=== PATIENT | male | born 1975 | race Caucasian/White ===

== ENCOUNTER 2019-05-10 19:56 | Emergency (ER) | payer BC ==
[2019-05-10 20:10] VITALS: PULSE 77; RESP 18
[2019-05-10] MEDS ORDERED: MORPHINE SULFATE 4 MG/ML SYRINGE IM STA (20:24)
[2019-05-10] MEDS ORDERED: KETOROLAC 30 MG/ML 1 ML VIAL IM STA (20:24)
--- NOTE | 2019-05-10 20:28 | ED ---
Fall HPI - General Chief Complaint: Fall Stated Complaint: Fall, back pain Time Seen by Provider: 05/10/19 20:11 Source: patient Mode of arrival: ambulatory - History of Present Illness Initial Comments: 44 year-old male patient presents to the emergency room today for evaluation of left low back pain after a slip and fall accident. Patient states he slipped and fell down approximately 2 steps hitting his back, the stairs. Patient denies hitting his head or losing consciousness. Denies any neck pain. Patient states he is having difficulty going from a sitting to standing position due to the pain. Denies any radiation of the pain down his legs. Denies numbness, tingling, weakness of the lower extremities. Denies any saddle anesthesia or loss of bowel or bladder control. He denies any other injuries. He did take ibuprofen without relief. Patient denies any headache, chest pain, shortness of breath, dizziness, weakness, abdominal pain, nausea, vomiting, or difficulties with bowel movements or urination. - Related Data Previous Rx's Medication Instructions Recorded Cyclobenzaprine [Flexeril] 10 mg PO TID #15 tab 05/10/19 Allergies Allergy/AdvReac Type Severity Reaction Status Date / Time No Known Allergies Allergy Verified 05/10/19 20:10 Review of Systems ROS Statement: Those systems with pertinent positive or pertinent negative responses have been documented in the HPI. ROS Other: All systems not noted in ROS Statement are negative. Past Medical History Past Medical History: No Reported History History of Any Multi-Drug Resistant Organisms: None Reported Additional Past Surgical History / Comment(s): pectus excavatum Past Psychological History: No Psychological Hx Reported Smoking Status: Never smoker Past Alcohol Use History: None Reported Past Drug Use History: None Reported General Exam Limitations: no limitations General appearance: alert, in no apparent distress, other (This is a well- developed, well-nourished adult male patient in no acute distress. Vital signs upon presentation are temperature 98.4F, pulse 77, respirations 18, blood pressure 140/79, pulse ox 97% on room air.) Eye exam: Present: normal appearance, PERRL, EOMI. Absent: scleral icterus, conjunctival injection, periorbital swelling ENT exam: Present: normal exam, normal oropharynx, mucous membranes moist Neck exam: Present: normal inspection, full ROM, other (Nontender, no step-off, no deformity to firm midline palpation of the posterior cervical spine. Full range of motion without pain or limitation.). Absent: tenderness, meningismus, lymphadenopathy Respiratory exam: Present: normal lung sounds bilaterally. Absent: respiratory distress, wheezes, rales, rhonchi, stridor Cardiovascular Exam: Present: regular rate, normal rhythm, normal heart sounds. Absent: systolic murmur, diastolic murmur, rubs, gallop, clicks GI/Abdominal exam: Present: soft, normal bowel sounds. Absent: distended, tenderness, guarding, rebound, rigid Extremities exam: Present: normal inspection, full ROM, normal capillary refill, other (Skin to the lower extremities is pink, warm, dry. Cap refills less than 3 seconds. Pedal and posttibial pulses are 2+ and equal bilaterally.). Absen t: tenderness, pedal edema, joint swelling, calf tenderness Back exam: Present: normal inspection, tenderness (Left low back). Absent: vertebral tenderness Neurological exam: Present: alert, oriented X3, CN II-XII intact Psychiatric exam: Present: normal affect, normal mood Skin exam: Present: warm, dry, intact, normal color. Absent: rash Course Vital Signs 05/10/19 20:07 Temperature 98.4 F Pulse Rate 77 Respiratory 18 Rate Blood Pressure 140/79 O2 Sat by Pulse 97 Oximetry Medical Decision Making - Medical Decision Making 44-year-old male patient presented to the emergency department today for evaluation of left low back pain after soap and fall accident. Physical examination did reveal some left low back tenderness. No ecchymosis. No spinal tenderness. X-ray was obtained and showed no acute abnormalities. Urinalysis showed no abnormalities, no blood. He had no CVA tenderness. He is neurologically intact with no focal deficits. No concerning symptoms for cauda equina. I did discuss findings and results with the patient. We did discuss contusion and low back strain as a cause for his symptoms. We'll treat with anti-inflammatories and muscle relaxers. He is instructed to follow-up with his primary care physician for recheck in 1-2 days. Return parameters discussed in detail. He verbalizes understanding and agrees with this plan. - Lab Data Lab Results 05/10/19 Range/Units 20:44 Urine Color Yellow Urine Appearance Clear (Clear) Urine pH 6.0 (5.0-8.0) Ur Specific [place] 1.030 (1.001-1.035) Urine Protein Trace H (Negative) Urine Glucose (UA) Negative (Negative) Urine Ketones Negative (Negative) Urine Blood Negative (Negative) Urine Nitrite Negative (Negative) Urine Bilirubin Negative (Negative) Urine Urobilinogen 3.0 (<2.0) mg/dL Ur Leukocyte Esterase Negative (Negative) - Radiology Data Radiology results: report reviewed, image reviewed X-ray of the lumbosacral spine was obtained. Report was reviewed in its entirety. Impression by Dr. Kellogg shows mild L4 to 5 spondylosis. No fracture seen. Disposition Clinical Impression: Contusion of lower back, Low back strain Disposition: HOME SELF-CARE Condition: Good Instructions (If sedation given, give patient instructions): Low Back Strain (ED), Contusion in Adults (ED) Additional Instructions: Apply ice 20 minutes on and 20 minutes off for the first 24 hours, then switch to warm moist heat. Take medications as directed for pain control. Take motrin 600mg as needed for pain. Follow up with your primary care physician for recheck in 1-2 days. Return to the emergency department immediately for any new, worsening, or concerning symptoms. Prescriptions: Cyclobenzaprine [Flexeril] 10 mg PO TID #15 tab Is patient prescribed a controlled substance at d/c from ED?: No Referrals: Pa Brothers MD [Primary Care Provider] - 1-2 days Time of Disposition: 21:22
--- NOTE | 2019-05-10 20:46 | XR ---
EXAMINATION TYPE: XR lumbosacral spine min 4V DATE OF EXAM: 05/10/2019 COMPARISON: NONE HISTORY: Back pain TECHNIQUE: 5 views FINDINGS: Lumbar vertebra have normal alignment. Disc spaces are fairly normal. There is slight narro wing at L4-5 disc. Posterior elements are intact. There is no compression fracture. Sacroiliac joints appear intact. IMPRESSION: Mild L4-5 spondylosis. No fracture seen.
[2019-05-10 20:50] LABS: Appearance,Urine Clear (Clear); Bilirubin,Urine Negative (Negative); Blood,Urine Negative (Negative); Color,Urine Yellow; Glucose,Urine (UA) Negative (Negative); Ketones,Urine Negative (Negative); Leukocyte Esterase,Urine Negative (Negative); Nitrite,Urine Negative (Negative); Protein,Urine Trace (Negative)
[2019-05-10] MEDS ORDERED: CYCLOBENZAPRINE 10MG STARTER 3 TAB BTL PO STA (21:20)
[2019-05-10] MEDS ORDERED: ACET/COD 300 MG/30 MG STARTER PACK 6 TAB BTL PO STA (21:20)
[2019-05-10 21:41] VITALS: BP 131/91; TEMP 98.3
== END 2019-05-10 21:42 | disposition home or self-care (01) ==
LOC: EC 19:56
DX: S39.012A Strain of muscle, fascia and tendon of lower back, initial encounter (principal); W00.1XXA Fall from stairs and steps due to ice and snow, initial encounter
CPT/HCPCS: 81003; 72110; 99284; 96372 ×2; J2270; J1885

== ENCOUNTER → 2023-05-24 | Outpatient (CLI) | payer BC ==
--- NOTE | 2023-05-24 16:12 | XR ---
EXAMINATION TYPE: XR KUB DATE OF EXAM: 05/24/2023 HISTORY: Pain Comparison: None.Single KUB is submitted for interpretation. Findings: Right renal calculi: Limited evaluation given overlying bowel content. Right ureteral calculi: None Visualized. Left renal calculi: Elongate calculus overlies the region of the left renal pelvis and measures 9 mm in length and 2.7 mm in width. Left ureteral calculi: None Visualized. Pelvic calcifications: Multiple phleboliths noted. Bowel gas pattern is unremarkable. No free air. No mass effects. IMPRESSION: 1. As above
== END | disposition home or self-care (01) ==
LOC: RADXRMAIN 09:35
PROVIDERS: ATTEND Urology
DX: N20.2 Calculus of kidney with calculus of ureter (principal)
CPT/HCPCS: 74018

== ENCOUNTER → 2023-06-02 | Outpatient (CLI) | payer BC ==
[2023-06-03 02:11] LABS: Basophils # (A) 0.08 X 10*3/uL (0.00-0.10); Basophils % (A) 0.9 %; Eosinophils # (A) 0.46 X 10*3/uL (0.04-0.35); HCT 47.4 % (39.6-50.0); HGB 15.8 g/dL (13.0-17.0); Lymphocytes # (A) 1.61 X 10*3/uL (0.90-5.00); Lymphocytes % (A) 17.5 %; MCH 30.5 pg (27.0-32.0); MCHC 33.3 g/dL (32.0-37.0); MCV 91.5 FL (80.0-97.0); Mean Platelet Volume 11.9 FL (9.5-12.2); Monocytes # (A) 0.89 X 10*3/uL (0.20-1.00); Monocytes % (A) 9.7 %; NRBC Per 100 WBC 0 X 10*3/uL (0.00-0.01); Neutrophils # (A) 6.11 X 10*3/uL (1.80-7.70); Neutrophils % (A) 66.4 %; Platelet Count 242 X 10*3/uL (140-440); RBC 5.18 X 10*6/uL (4.40-5.60); RDW 12.8 % (11.5-14.5)
[2023-06-03 02:13] LABS: Blood Urea Nitrogen 27.3 mg/dL (9.0-27.0); Calcium 9.7 mg/dL (8.7-10.3); Carbon Dioxide 22.8 mmol/L (21.6-31.8); Chloride 102 mmol/L (96-109); Glucose 95 mg/dL (70-110); Potassium 4.5 mmol/L (3.5-5.5); Sodium 138 mmol/L (135-145)
== END | disposition home or self-care (01) ==
LOC: LABPAT 16:16
PROVIDERS: ATTEND Urology
DX: Z01.812 Encounter for preprocedural laboratory examination (principal); N20.1 Calculus of ureter
CPT/HCPCS: 36415; 80048; 85025

== ENCOUNTER 2023-06-09 11:13 | Day surgery (SDC) | payer BC ==
[2023-06-07 16:31] VITALS: BMI 31.1
--- NOTE | 2023-06-08 07:13 | P.GSHP ---
History of Present Illness H&P Date: 06/08/23 Chief Complaint: Left renal colic The patient is a 48-year-old white male who presented with left leg pain and was found to have mild to moderate left hydronephrosis due to a 5 mm midureteral calculus. This was diagnosed on a CT scan performed 04/19/2023. A KUB x-ray on 05/24/2023 failed to demonstrate the calculus. However, he continues to experience bilateral groin pain, and urinalysis shows persistent trace microhematuria. - Constitutional Constitutional: Denies chills, Denies fever - Gastrointestinal Gastrointestinal: Denies nausea, Denies vomiting - Genitourinary (Male) Genitourinary: Reports flank pain, Reports kidney stones, Reports testicular pain, Denies hematuria Past Medical History Past Medical History: GERD/Reflux, Osteoarthritis (OA) Additional Past Medical History / Comment(s): Current kidney stones. History of Any Multi-Drug Resistant Organisms: None Reported Past Surgical History: Orthopedic Surgery Additional Past Surgical History / Comment(s): Pectus excavatum at age 2, surgery on cornea, left rotator cuff surgery. Past Anesthesia/Blood Transfusion Reactions: No Reported Reaction Past Psychological History: No Psychological Hx Reported Smoking Status: Never smoker Past Alcohol Use History: None Reported Past Drug Use History: None Reported - Past Family History Father Family Medical History: Cancer Medications and Allergies Home Medications Medication Instructions Recorded Confirmed Type Acyclovir [Zovirax] 800 mg PO DAILY 06/07/23 06/07/23 History Meloxicam [Mobic] 15 mg PO DAILY 06/07/23 06/07/23 History Allergies Allergy/AdvReac Type Severity Reaction Status Date / Time adhesive Allergy Rash/Hives Verified 06/07/23 16:03 Surgical - Exam - General well developed, well nourished, no distress - Neck no masses, trachea midline - Respiratory normal respiratory effort - Abdomen Abdomen: soft, tender (Mild left lower quadrant tenderness), no guarding, no rigid, no rebound - Genitourinary normal penis with no external lesions bilateral: tender - Psychiatric oriented to time, oriented to person, oriented to place, speech is normal, memory intact Results - Imaging CT scan - abdomen: report reviewed, image reviewed Assessment and Plan (1) Calculus of ureter Status: Acute Code(s): N20.1 - CALCULUS OF URETER SNOMED Code(s): 21807672 Plan: Cystoscopy, bilateral retrograde pyelograms, left ureteroscopy with Holmium laser lithotripsy and possible stone basketing, left ureteral stent insertion. The procedure has been reviewed in detail with the patient. He is been made aware of potential risks, which include anesthesia, bleeding, infection, ureteral injury, and inability to remove the ureteral calculus.
[~2023-06-09 11:13] MED LIST: DEXAMETHASONE SOD PHOSPHATE 4 MG/ML 1 ML VIAL IV ONE; HYDROmorphone 0.5 MG/0.5 ML SYRINGE IVP PRN; LACTATED RINGERS 1,000 ML IV SCH; LIDOCAINE 1% (10MG/ML) FOR IV START INTRADERMA PRN; ONDANSETRON 4 MG/2 ML VIAL IVP ONE; droPERidol 5 MG/2 ML VIAL IVP ONE
--- NOTE | 2023-06-09 13:00 | XR ---
EXAMINATION TYPE: XR KUB DATE OF EXAM: 06/09/2023 12:29 PM CLINICAL INDICATION:Male, 48 years old with history of Left kidney stones; COMPARISON: 05/24/2023 TECHNIQUE: One radiographic view of the abdomen was obtained. FINDINGS: The bowel gas pattern is nonspecific without dilated loops of small or large bowel. There i s no evidence for organomegaly or pneumoperitoneum. The osseous structures are intact. Fecal mater ial and gas are demonstrated throughout the colon and rectum. Density projecting over the left kidne y could represent calculus measuring 4 mm. No other calculi definitively visualized. IMPRESSION: 1. Elongated calculus seen on prior are not definitively visualized. There is another hyperdense les ion measuring 4 mm could represent contrast. Consider CT as a better modality for assessing for renal stone. 2. Nonspecific bowel gas pattern without radiographic evidence for acute process.
[2023-06-09] MEDS ORDERED: PROPOFOL 10 MG/ML 20 ML VIAL IV ONE (13:44)
[2023-06-09] MEDS ORDERED: fentaNYL (PF) 50 MCG/ML 2 ML AMP ONE (13:44)
[2023-06-09] MEDS ORDERED: LIDOCAINE 1% INJ 10MG/ML (20 ML MDV) ONE (13:44)
[2023-06-09] MEDS ORDERED: KETOROLAC 30 MG/ML 1 ML VIAL ONE (13:44)
[2023-06-09] MEDS ORDERED: MIDAZOLAM 2 MG/2 ML VIAL ONE (13:44)
[2023-06-09] MEDS ORDERED: IOPAMIDOL-370 100ML BTL MISCELLANE ONE (14:17)
[2023-06-09] MEDS ORDERED: LACTATED RINGERS 1,000 ML IV ONE (14:23)
--- NOTE | 2023-06-09 14:27 | P.OP ---
Date of Procedure: 06/09/23 Preoperative Diagnosis: Left ureteral calculus Postoperative Diagnosis: Same Procedure(s) Performed: Cystoscopy, bilateral retrograde pyelograms Anesthesia: ОЛЬГАA Surgeon: Christian Marion Estimated Blood Loss (ml): 0 IV fluids (ml): 700 Pathology: none sent Condition: stable Disposition: PACU Indications for Procedure: The patient is a 48-year-old white male who presented with left leg pain and was found to have mild to moderate left hydronephrosis due to a 5 mm mid-ureteral calculus. This was diagnosed on a CT scan performed 04/19/2023. A KUB x-ray on 05/24/2023 failed to demonstrate the calculus. However, he continues to experience bilateral groin pain, and urinalysis shows persistent trace microhematuria. Operative Findings: Normal retrograde pyelograms. No calculus seen. Description of Procedure: The patient was taken to the operating room and placed in the dorsolithotomy position, with legs supported in Nicola stirrups. The external genitalia was prepped and draped sterilely. The urethral meatus would not accommodate the cystoscope. Therefore, the urethra was dilated to 24-Israeli using Barrow sounds. The 30 lens was used to introduce the 21-Israeli Nickerson cystoscopic sheath through the urethra and into the bladder under direct vision. The anterior urethra appeared normal. The prostatic urethra showed evidence of mild lateral lobe enlargement, without obstruction. The bladder was examined in its entirety. Both ureteral orifices were normal anatomic location and configuration, and clear urine effluxed from both. No tumors or foreign bodies were seen. Using a 10-Israeli cone-tipped catheter, bilateral retrograde pyelograms were performed. The caliber of the distal ureter was diminished bilaterally. No filling defects were seen, and there was no evidence of hydronephrosis. Both systems drained promptly. The retrograde pyelogram was repeated on the left side to confirm that a calculus was not seen within the ureter. The bladder was emptied and the cystoscope removed. The patient tolerated the procedure well and was taken to the recovery room in stable condition.
[2023-06-09 14:45] VITALS: TEMP 97.2
[2023-06-09 15:35] VITALS: BP 138/91; PULSE 70; RESP 16
--- NOTE | 2023-06-10 07:33 | FL ---
Intraoperative/procedural fluoroscopic services were provided. Total fluoroscopy time is 24 seconds w ith a total of 8 submitted images to PACS. Please see the operative/procedural note for further detai ls. DAP: 1091 Gycm2
== END 2023-06-09 15:39 | disposition home or self-care (01) ==
LOC: OR 11:13
PROVIDERS: ATTEND Urology
DX: N20.1 Calculus of ureter (principal); K21.9 Gastro-esophageal reflux disease without esophagitis; M19.90 Unspecified osteoarthritis, unspecified site; Z79.1 Long term (current) use of non-steroidal anti-inflammatories (NSAID); Z87.442 Personal history of urinary calculi
CPT/HCPCS: 74420; 74018; 52281; C1758; C1769; C1894; J2250; J1100; J0690; J2405; J2001; J3010; J1885; J2704; Q9967

== ENCOUNTER → 2023-12-02 | Outpatient (CLI) | payer BC ==
[2023-12-03 04:01] LABS: Basophils # (A) 0.06 X 10*3/uL (0.00-0.10); Basophils % (A) 0.9 %; Eosinophils # (A) 0.21 X 10*3/uL (0.04-0.35); Eosinophils % (A) 3.2 %; HCT 46.6 % (39.6-50.0); HGB 15.1 g/dL (13.0-17.0); Lymphocytes # (A) 1.46 X 10*3/uL (0.90-5.00); Lymphocytes % (A) 22.1 %; MCH 29.4 pg (27.0-32.0); MCHC 32.4 g/dL (32.0-37.0); MCV 90.7 FL (80.0-97.0); Mean Platelet Volume 11.6 FL (9.5-12.2); Monocytes # (A) 0.83 X 10*3/uL (0.20-1.00); Monocytes % (A) 12.6 %; NRBC Per 100 WBC 0 X 10*3/uL (0.00-0.01); Neutrophils # (A) 4.03 X 10*3/uL (1.80-7.70); Neutrophils % (A) 60.9 %; Platelet Count 192 X 10*3/uL (140-440); RBC 5.14 X 10*6/uL (4.40-5.60); RDW 12.6 % (11.5-14.5); WBC 6.61 X 10*3/uL (4.50-10.00)
[2023-12-03 04:36] LABS: BUN/Creat Ratio 21.89 Ratio (12.00-20.00); Blood Urea Nitrogen 19.7 mg/dL (9.0-27.0); Glucose 88 mg/dL (70-110)
[2023-12-03 04:37] LABS: Carbon Dioxide 23.2 mmol/L (21.6-31.8); Chloride 107 mmol/L (96-109); Potassium 4.4 mmol/L (3.5-5.5); Sodium 140 mmol/L (135-145)
== END | disposition home or self-care (01) ==
LOC: LABWHC1 16:10
PROVIDERS: ATTEND Urology
DX: Z01.812 Encounter for preprocedural laboratory examination (principal); N20.1 Calculus of ureter
CPT/HCPCS: 80048; 85025

== ENCOUNTER 2023-12-08 10:50 | Day surgery (SDC) | payer BC ==
--- NOTE | 2023-12-08 11:30 | XR ---
EXAMINATION TYPE: XR KUB DATE OF EXAM: 12/08/2023 Comparison: 06/09/2023 Clinical History: 48-year-old male PRE SURG KUB Findings: Lung bases are clear. No evidence for free intraperitoneal air. Moderate stool burden. Nonobstructive bowel gas pattern. Bowel content largely obscures the renal shadows. Possible 8 mm calcification left paramedian mid abd omen probably within the ureter. Impression: Possible 8 mm calcification left paramedian mid abdomen which may be located in the ureter. Clinicall y correlate.
[2023-12-08] MEDS: IV FLUID CONTINUATION 1,000 ML IV ONE (11:33)
[2023-12-08] MEDS: DEXAMETHASONE SOD PHOSPHATE 4 MG/ML 1 ML VIAL IV ONE (11:41)
[2023-12-08] MEDS: ONDANSETRON 4 MG/2 ML VIAL IVP ONE (11:41)
[2023-12-08] MEDS: LACTATED RINGERS 1,000 ML IV SCH (11:42)
--- NOTE | 2023-12-08 12:36 | P.GSHP ---
History of Present Illness H&P Date: 12/08/23 Chief Complaint: Left Renal Colic The patient is a 48-year-old white male who presented with left leg pain and was found to have mild to moderate left hydronephrosis due to a 5 mm mid-ureteral calculus. This was diagnosed on a CT scan performed 04/19/2023. A KUB x-ray on 05/24/2023 failed to demonstrate the calculus. However, he continued to experience bilateral groin pain, and urinalysis showed persistent trace microhematuria. He underwent cystoscopy with bilateral retrograde pyelograms in May 2023, and it appeared that he did not have a ureteral calculus. However, a CT scan in August 2023 showed moderate left hydronephrosis due to a 7 mm mid-ureteral calculus. He is experiencing persistent pain, predominantly left-sided. 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 History of Any Multi-Drug Resistant Organisms: None Reported Past Surgical History: Orthopedic Surgery Additional Past Surgical History / Comment(s): pectus excavatum, left rotator cuff surg, partial cornea transplant right eye. Past Anesthesia/Blood Transfusion Reactions: No Reported Reaction Smoking Status: Never smoker Medications and Allergies Home Medications Medication Instructions Recorded Confirmed Type Acyclovir [Zovirax] 800 mg PO DAILY 06/07/23 12/08/23 History Meloxicam [Mobic] 15 mg PO DAILY 06/07/23 12/08/23 History Allergies Allergy/AdvReac Type Severity Reaction Status Date / Time adhesive Allergy Rash/Hives Verified 12/08/23 11:33 Surgical - Exam Vital Signs Temp Pulse Resp BP Pulse Ox 97.0 F L 69 18 131/86 96 12/08/23 11:31 12/08/23 11:31 12/08/23 11:31 12/08/23 11:31 12/08/23 11:31 - General well developed, well nourished, no distress - Respiratory normal respiratory effort - Abdomen Abdomen: soft, tender (Mild LLQ tenderness), no guarding, no rigid, no rebound - Genitourinary normal penis with no external lesions, testicles non-tender - Psychiatric oriented to time, oriented to person, oriented to place, speech is normal, memory intact Results - Imaging CT scan - abdomen: report reviewed, image reviewed Assessment and Plan (1) Calculus of ureter Current Visit: No Status: Acute Code(s): N20.1 - CALCULUS OF URETER SNOMED Code(s): 45858875 Plan: Cystoscopy, bilateral retrograde pyelograms, left ureteroscopy with Holmium laser lithotripsy and stone basketing, left ureteral stent insertion. The procedure has been reviewed in detail with the patient. He is aware of potential risks, which include anesthesia, bleeding, infection, ureteral injury, and inability to successfully remove the calculus. If the right retrograde pyelogram shows a calculus, right ureteroscopy will be performed as well.
[2023-12-08] MEDS ORDERED: fentaNYL (PF) 50 MCG/ML 2 ML AMP ONE (12:43)
[2023-12-08] MEDS ORDERED: MIDAZOLAM 2 MG/2 ML VIAL ONE (12:43)
[2023-12-08] MEDS ORDERED: LIDOCAINE 1% INJ 10MG/ML (20 ML MDV) ONE (12:43)
[2023-12-08] MEDS ORDERED: PROPOFOL 10 MG/ML 20 ML VIAL IV ONE (12:43)
[2023-12-08] MEDS ORDERED: KETOROLAC 30 MG/ML 1 ML VIAL ONE (12:43)
[2023-12-08] MEDS: IOPAMIDOL-370 50ML BTL IRRIGATION ONE (13:05)
[2023-12-08] MEDS: LACTATED RINGERS 1,000 ML IV ONE (13:26)
[2023-12-08 14:11] VITALS: TEMP 97.6
--- NOTE | 2023-12-08 14:13 | P.OP ---
Date of Procedure: 12/08/23 Preoperative Diagnosis: Left Ureteral Calculus Postoperative Diagnosis: Same, Meatal Stenosis Procedure(s) Performed: Urethral dilation, cystoscopy, bilateral retrograde pyelograms, left ureteroscopy with Holmium laser lithotripsy, left ureteral stent insertion Anesthesia: CHRISTINA Surgeon: Christian Marion Estimated Blood Loss (ml): 5 IV fluids (ml): 1,000 Pathology: none sent Condition: stable Disposition: PACU Indications for Procedure: The patient is a 48-year-old white male who presented with left leg pain and was found to have mild to moderate left hydronephrosis due to a 5 mm mid-ureteral calculus. This was diagnosed on a CT scan performed 04/19/2023. A KUB x-ray on 05/24/2023 failed to demonstrate the calculus. However, he continued to experience bilateral groin pain, and urinalysis showed persistent trace microhematuria. He underwent cystoscopy with bilateral retrograde pyelograms in May 2023, and it appeared that he did not have a ureteral calculus. However, a CT scan in August 2023 showed moderate left hydronephrosis due to a 7 mm mid-ureteral calculus. He is experiencing persistent pain, predominantly left-sided. Operative Findings: Left proximal ureteral calculus, fragmented completely. Meatal stenosis with narrowing of the fossa navicularis. Description of Procedure: The patient was taken to the operating room and placed in the dorsolithotomy position, with legs supported in Nicola stirrups. The external genitalia was prepped and draped sterilely. The urethral meatus was diminished in caliber, requiring urethral dilation. The 30 lens was used to introduce the 21-Cambodian Nickerson cystoscopic sheath through the urethra and into the bladder under direct vision. The prostatic urethra showed evidence of mild lateral lobe enlargement. The bladder was examined in its entirety. Both ureteral orifices were normal anatomic location and configuration, and clear urine effluxed from both. No tumors or foreign bodies were seen. Using a 10 Cambodian cone-tip catheter, bilateral retrograde pyelograms were performed. The right ureter was normal in course and caliber, and there was no evidence of filling defects or hydronephrosis. On the left side, the calculus was identified as an irregularity within the left proximal ureter. A 0.038 inch Glidewire was passed through the cystoscope. The ureteral orifice was cannulated, and the Glidewire was advanced up to the calculus. The calculus was impacted and it was not possible to advance the tip of the Glidewire beyond the calculus. The cystoscope was removed, and an 11/13-Cambodian ureteral access catheter was passed over the wire, up to the mid ureter. The Maaguzi flexible ureteroscope was then passed through the ureteral access catheter sheath and advanced under direct vision, up to the calculus. The 272 micron Holmium laser probe was passed through the ureteroscope, and lithotripsy was performed. The calculus was likely composed of calcium oxalate dihydrate, as it was not dense and fragmented readily. This was done until there were no residual calculus fragments exceeding 1 mm in size. Inspection of the ureter showed evidence of edema where the stone was impacted, but no evidence of uret eral trauma. The Glidewire was left in place, and the ureteral access catheter sheath was removed. The Glidewire was then backloaded into the cystoscope, which was passed into the bladder. A 28 cm, 4.8 Cambodian double-J ureteral stent was placed over the wire. Proper stent positioning was verified fluoroscopically and endoscopically. The bladder was emptied and the cystoscope removed. The string left attached to the stent was taped to the patient's penis using a Tegaderm dressing. The patient tolerated the procedure well and was taken to the recovery room in stable condition. ARTUR TILLMAN Report: Procedure Acuity: Elective Stone Size and Location: 7 mm, left proximal ureter Ureteral Dilation: No Ureteral Access Sheath Used: Yes Stone Sent for Analysis: No All Stones/Fragments Were Removed with a Basket: No Complications: No Preoperative Antibiotics Given: Yes Stent Placed: Yes If Stent Placed, Was String Left Attached: Yes If Stent Placed, When is it to be Removed: 1 week Discharge Medications: Toradol, tamsulosin
[2023-12-08] MEDS: HYDROmorphone 0.5 MG/0.5 ML SYRINGE IVP PRN (14:22)
--- NOTE | 2023-12-08 14:38 | FL ---
Intraoperative/procedural fluoroscopic services were provided left ureter calculus. Total fluoroscopy time is 86.1 seconds with a total of 11 submitted images to PACS. Total DAP 0.77596 Gycm2. Please s ee the operative note for further details.
[2023-12-08 15:17] VITALS: BP 138/86; PULSE 57; RESP 14
== END 2023-12-08 16:10 | disposition home or self-care (01) ==
LOC: OR 10:50
PROVIDERS: ATTEND Urology
DX: N13.2 Hydronephrosis with renal and ureteral calculous obstruction (principal); N35.911 Unspecified urethral stricture, male, meatal; N40.0 Benign prostatic hyperplasia without lower urinary tract symptoms; G47.33 Obstructive sleep apnea (adult) (pediatric); Z91.09 Other allergy status, other than to drugs and biological substances; Z79.1 Long term (current) use of non-steroidal anti-inflammatories (NSAID); Z79.899 Other long term (current) drug therapy
CPT/HCPCS: 74018; 52356; C2625; C1758; C1769; J2250; J1100; J0690; J2405; J2001; J3010; J1885; J2704; J1170; Q9967

== ENCOUNTER → 2024-01-31 | Outpatient (CLI) | payer BC ==
--- NOTE | 2024-02-28 12:56 | US ---
Site ID [id number] Patient Jose Lara ID [id number] Age/Gender: 49Y, O Order # N/A Procedure US kidneys/renal and bladder EXAMINATION TYPE: US renals and bladder DATE OF EXAM: 02/18/2024 COMPARISON: NONE CLINICAL INDICATION: 49 year old with history of lithotripsy one month ago, left flank pain. EXAM MEASUREMENTS: Right Kidney: 11.7 x 6.8 x 6.5 cm Left Kidney: 11.8 x 6.2 x 6.1 cm Right Kidney: wnl Left Kidney: Probable calculus lower pole measuring 0.4 cm. Bladder: wnl Bilateral Jets seen: No There is no evidence for hydronephrosis at this point in time. Corticomedullary differentiation is ma intained bilaterally. No shadowing right renal calculi. Left lower pole 4 mm nonobstructive renal ca lculus. No masses are identified. The urinary bladder is anechoic. Bilateral ureteral jets are not seen. IMPRESSION: 1. No hydronephrosis. 2. Nonobstructive left renal calculus.
== END | disposition home or self-care (01) ==
LOC: RADUSWWP 12:00
PROVIDERS: ATTEND Urology
DX: N13.2 Hydronephrosis with renal and ureteral calculous obstruction (principal)
CPT/HCPCS: 76770